=== PATIENT | female | born 1990 | race Hispanic/Latino ===

== ENCOUNTER 2022-05-02 21:51 | Emergency (ER) | payer OTHER ==
[~2022-05-02] VITALS: Ht 162.6 cm; Wt 92.1 kg
[2022-05-02 22:54] VITALS: BP 115/57
[2022-05-02] MEDS ORDERED: CYCL10TA16 PO (22:58)
[2022-05-02] MEDS ORDERED: IBUP-2070 PO (22:58)
== END 2022-05-02 23:05 | disposition home or self-care (01) ==
LOC: EDH 21:51
DX: R07.89 Other chest pain (principal); M54.6 Pain in thoracic spine